=== PATIENT | male | born 1960 | race African-American/Black ===

== ENCOUNTER 2017-09-10 13:14 | Emergency (ER) | payer MEDICAID ==
[~2017-09-10] VITALS: Ht 180.3 cm; Wt 70.3 kg
[2017-09-10 13:29] VITALS: BP_SYST 122
--- NOTE | 2017-09-10 13:34 | NUR ---
Patient to [facility] for evaluation. Side rails up. Report given to Norman ARREGUIN.
--- NOTE | 2017-09-10 13:40 | NUR ---
PT PRESENTS TO ED C/O POST NASAL DRIP AND COUGH NO RESOLVING W/ MUCINEX.NO RESP DISTRESS NOTED.
--- NOTE | 2017-09-10 13:41 | NUR ---
LILI SALAS at bedside examining patient.
--- NOTE | 2017-09-10 14:13 | NUR ---
Patient given written and verbal discharge instructions and verbalizes understanding. ER MD discussed with patient the results and treatment provided. Patient in stable condition. ID arm band removed. Rx of AMOXICILLIN,NASAL SPRAY given. Patient educated on pain management and to follow up with PMD. Pain Scale 2 Opportunity for questions provided and answered. Addendum: 09/10/17 at 1427 by JEFE RX: NASAL SPRAY,AUGMENTIN,MOTRIN
[2017-09-10 14:15] VITALS: BP_SYST 122
== END 2017-09-10 14:15 | disposition home or self-care (01) ==
LOC: SED 13:14
DX: J01.00 Acute maxillary sinusitis, unspecified (principal); R03.0 Elevated blood-pressure reading, without diagnosis of hypertension; F17.210 Nicotine dependence, cigarettes, uncomplicated; Z71.6 Tobacco abuse counseling
CPT/HCPCS: 71045; 99283